=== PATIENT | male | born 1955 | race Caucasian/White ===

== ENCOUNTER → 2017-02-27 | Outpatient (CLI) | payer BC ==
[~2017-02-27] MED LIST: ACET1TAB84 PO; ASPEC81 PO; ASPI325T45 PO; ATOR-24 PO; CYCL10TA6 PO; DICL-201 PO; ERGO500011 PO; GABA-112 PO; GLC500 PO; GLIM2TAB PO; LISI-791 PO; METO-452 PO; OXYC-57 PO; TPRSR100 PO; TRAM37.52 PO
--- NOTE | 2017-02-27 16:19 | DIAGNOSTIC IMAGING REPORT ---
Venous Doppler left leg LEFT VENOUS DOPP LOWER EXT UNILAT CLINICAL HISTORY: M79.89 Swelling of left lower [id number] TECHNIQUE: Venous Doppler COMPARISON STUDY: None FINDINGS: Normal study of the deep venous structures. No evidence of deep venous thrombosis. Moderately complex well-circumscribed circumscribed collection posterior to the proximal calf measuring 9 x 4 x 2 cm. This may represent hematoma. IMPRESSION: 1. Study is negative for deep venous thrombosis. 2. Soft tissue hematoma posterior aspect proximal calf. Electronically signed by: Lucho Kennedy M.D. 02/27/2017 4:18 PM Dictated Date/Time: 02/27/2017 4:16 PM
== END | disposition home or self-care (01) ==
LOC: C.ULTR 15:23
PROVIDERS: ATTEND Neuromusculoskeletal Medicine & OMM
DX: M79.89 Other specified soft tissue disorders (principal)

== ENCOUNTER → 2017-03-01 | Outpatient (CLI) | payer BC ==
[2017-03-01 17:36] LABS: BASO % 0.3 %; BASO ABS # 0.03 K/uL (0-0.2); COMPLETE YES; EOS % 0.7 %; HEMATOCRIT 44.2 % (42-52); IG% 0.3 %; LYMPH % 14.3 %; MEAN CORPUSCULAR HEMOGLOBIN 30.4 pg (25-34); MEAN CORPUSCULAR HGB CONC 32.4 g/dl (32-36); MEAN PLATELET VOLUME 10.9 fL (7.4-10.4); MONO % 9.5 %; NEUT % 74.9 %; PLATELET COUNT 236 K/uL (130-400); WHITE BLOOD COUNT 9.07 K/uL (4.8-10.8)
[2017-03-01 18:16] LABS: BLOOD UREA NITROGEN 14 mg/dl (7-18); CARBON DIOXIDE 23 mmol/L (21-32); CHLORIDE 108 mmol/L (98-107); GLUCOSE 228 mg/dl (70-99); POTASSIUM 4.4 mmol/L (3.5-5.1); SODIUM 142 mmol/L (136-145)
[2017-03-01 18:26] LABS: THYROID STIMULATING HORMONE 0.696 uIu/ml (0.300-4.500)
[2017-03-01 18:35] LABS: CALCIUM 9.1 mg/dl (8.5-10.1)
[2017-03-01 18:38] LABS: LYME DISEASE AB IGG NEG (NEG)
[2017-03-01 18:41] LABS: LYME DISEASE AB IGM NEG (NEG)
== END ==
LOC: C.LABPVFM 14:32
PROVIDERS: ATTEND Nurse Practitioner
DX: M79.1 Myalgia (principal); R53.83 Other fatigue; R51 Headache; M25.50 Pain in unspecified joint

== ENCOUNTER → 2017-03-22 | Outpatient (CLI) | payer BC ==
[~2017-03-22] MED LIST changes: +ERGO1CAP41 PO; -ERGO500011 PO; -METO-452 PO; +METO1TAB66 PO
--- NOTE | 2017-03-22 15:05 | DIAGNOSTIC IMAGING REPORT ---
LEFT KNEE 4 OR MORE CLINICAL HISTORY: LEFT KNEE PAIN pain COMPARISON: None. Discussion: Minimal degenerative change on major joint compartments. No significant joint effusion. Small osteophyte projecting from the superior patella. IMPRESSION: Minimal degenerative change. No acute process. Electronically signed by: Lucho Kennedy M.D. 03/22/2017 3:03 PM Dictated Date/Time: 03/22/2017 3:03 PM
== END | disposition home or self-care (01) ==
LOC: C.RDSM 14:21
PROVIDERS: ATTEND Physician Assistant
DX: M25.562 Pain in left knee (principal)

== ENCOUNTER → 2017-04-19 | Outpatient (CLI) | payer BC ==
--- NOTE | 2017-04-19 13:45 | DIAGNOSTIC IMAGING REPORT ---
LEFT SHOULDER MIN 2 VIEWS CLINICAL HISTORY: 61 years-old Male presenting with LEFT SHOULDER PAIN. TECHNIQUE: External rotation, transscapular Y, and axillary views of the left shoulder were obtained. COMPARISON: None. FINDINGS: No subluxation of the humeral head on the glenoid. Acromioclavicular joint congruent. No significant degenerative change. No acute fracture. No significant deformity of the humeral head or glenoid. Visualized portion of the left hemithorax normal. IMPRESSION: No acute osseous injury of the left shoulder. Electronically signed by: Chano Price M.D. 04/19/2017 1:44 PM Dictated Date/Time: 04/19/2017 1:42 PM
== END | disposition home or self-care (01) ==
LOC: C.RDSM 12:20
PROVIDERS: ATTEND Physician Assistant
DX: M25.512 Pain in left shoulder (principal)

== ENCOUNTER → 2017-05-26 | Outpatient (CLI) | payer BC ==
--- NOTE | 2017-05-26 18:13 | DIAGNOSTIC IMAGING REPORT ---
LEFT LOWER EXT JOINT WITHOUT CLINICAL HISTORY: 61 years-old Male with LEFT KNEE EFFUSION. Patient complains of left knee pain for approximately 5 months, most pronounced in the medial compartment. No reported trauma. COMPARISON: Left knee radiographs 03/22/2017 TECHNIQUE: Multiplanar, multisequence MRI of the left knee was performed without intravenous contrast. FINDINGS: MENISCI: There is a large complex tear of the medial meniscal body, anterior junction, posterior junction and posterior horn medial meniscus with dominant portion of the tear demonstrating a horizontal undersurface component as seen on image 5 of the sagittal PD series. Amorphous increased signal involving the posterior horn medial meniscal root suspicious for possible root tear. There is moderate degree of medial meniscal extrusion into the adjacent para meniscal gutter as seen on coronal PD image #19. There may also be a displaced fragment noted extending superiorly with moderate to extensive or parameniscal edema. There is a linear increased signal of the anterior horn lateral meniscus extending to the superior articular surface suggesting an horizontal tear as seen on image 17 of the sagittal PD series. CRUCIATE LIGAMENTS: The anterior and posterior cruciate ligaments are normal in signal, morphology and course. COLLATERAL LIGAMENTS: The popliteus tendon, biceps femoris tendon, fibular collateral ligament and iliotibial band are intact. There is thickening with intermediate signal noted involving the proximal MCL suggesting grade 2 sprain. Moderate edema is noted both superficial and deep to the MCL. EXTENSOR MECHANISM: The quadriceps and patellar tendons are intact. The medial and lateral patellar retinacula are intact. The trochlear groove is mildly shallow. Tibial tuberosity to trochlear groove interval is within normal limits. There is moderate thinning of the medial patellofemoral ligament suggesting chronic injury. KNEE JOINT: There is a large knee joint effusion with associated moderate synovitis. Mild lateral and patellofemoral osteoarthritis is noted with mild to moderate medial compartment disease. BONE MARROW: Moderate bone marrow edema involves the medial aspect of the medial femoral condyle and medial tibial plateau with slight cortical impaction measuring 10 x 13 mm within the medial aspect of the mid tibial plateau and 6 x 14 mm within the medial aspect of the mid weightbearing medial femoral condyle. No intra-articular loose body. SOFT TISSUES: Moderately complex leaking German's cyst is seen, 3.6 x 2.3 x 6.4 cm. IMPRESSION: 1. Moderate bone marrow edema within the medial aspect of the medial femoral condyle and medial tibial plateau with slight cortical impaction as above with moderate surrounding soft tissue edema suggests cortical impaction fractures with associated bone marrow contusion, acute to subacute in nature. 2. Large complex tear of the medial meniscal body, anterior junction, posterior junction and posterior horn medial meniscus with associated moderate meniscal extrusion into the parameniscal gutter. There may be a displaced fragment within the superior aspect of the parameniscal gutter. 3. Small horizontal superior articular surface tear of the anterior horn lateral meniscus. 4. Grade 2 sprain of the MCL. 5. Moderate joint effusion with synovitis. 6. Moderately complex leaking German's cyst. The above report was generated using voice recognition software. It may contain grammatical, syntax or spelling errors. Electronically signed by: Javed King M.D. 05/26/2017 6:11 PM Dictated Date/Time: 05/26/2017 4:29 PM
== END | disposition home or self-care (01) ==
LOC: C.MRIBC 15:17
PROVIDERS: ATTEND Physician Assistant
DX: M17.12 Unilateral primary osteoarthritis, left knee (principal); M25.462 Effusion, left knee; S83.242A Other tear of medial meniscus, current injury, left knee, initial encounter; S83.412A Sprain of medial collateral ligament of left knee, initial encounter; M71.22 Synovial cyst of popliteal space [Baker], left knee; X58.XXXA Exposure to other specified factors, initial encounter

== ENCOUNTER → 2017-06-05 | Outpatient (CLI) | payer BC | END | disposition home or self-care (01) | LOC: C.RDSM 16:07 | PROVIDERS: ATTEND Physical Medicine & Rehabilitation Sports Medicine | DX: M17.12 Unilateral primary osteoarthritis, left knee (principal) ==

== ENCOUNTER → 2017-06-15 | Outpatient (CLI) | payer BC ==
[~2017-06-15] MED LIST changes: +ATROPINE SULFATE 0.1 MG/ML 5ML SYR ONE; -CYCL10TA6 PO; +DOBUTamine 500MG / 250ML D5W ONE; -METO1TAB66 PO; +METOPROLOL TARTRATE 1 MG/ML VIAL ONE; +PERFLUTREN LIPID MICROSPHERE (DEFINITY) IV ONE
[2017-06-15 12:13] LABS: BASO % 0.6 %; BASO ABS # 0.04 K/uL (0-0.2); COMPLETE YES; EOS % 0.9 %; HEMATOCRIT 38.7 % (42-52); IG% 0.3 %; LYMPH % 18.2 %; LYMPH ABS # 1.16 K/uL (1.2-3.4); MEAN CELL VOLUME 93.9 fL (80-100); MEAN CORPUSCULAR HEMOGLOBIN 30.6 pg (25-34); MEAN CORPUSCULAR HGB CONC 32.6 g/dl (32-36); MEAN PLATELET VOLUME 10.4 fL (7.4-10.4); MONO % 8.5 %; NEUT % 71.5 %; PLATELET COUNT 257 K/uL (130-400); RED BLOOD COUNT 4.12 M/uL (4.7-6.1); WHITE BLOOD COUNT 6.38 K/uL (4.8-10.8)
[2017-06-15 12:24] LABS: ESTIMATED AVERAGE GLUCOSE 166 mg/dl; HA1C FLAG Normal (Normal)
[2017-06-15 12:30] LABS: ALT/SGPT 43 U/L (12-78); AST/SGOT 18 U/L (15-37); BLOOD UREA NITROGEN 19 mg/dl (7-18); BUN/CREATININE RATIO 18.7 (10-20); CALCIUM 9.3 mg/dl (8.5-10.1); CARBON DIOXIDE 28 mmol/L (21-32); CHLORIDE 108 mmol/L (98-107); GLUCOSE 142 mg/dl (70-99); SODIUM 140 mmol/L (136-145)
[2017-06-15 12:32] LABS: ALB/GLOB RATIO 1.2 (0.9-2); ALKALINE PHOSPHATASE 100 U/L (45-117)
--- NOTE | 2017-06-15 19:10 | DOBUTAMINE ECHO ---
*NOTICE TO RECEIVING [employer] This information is strictly Confidential and protected under [place] law. [place] law prohibits you from making any further disclosure of this information unless further disclosure is expressly permitted by the written consent of the person to whom it pertains or is authorized by law. A general authorization for the release of medical or other information is not sufficient for this purpose. Hospital accepts no responsibility if the information is made available to any other person, INCLUDING THE PATIENT. Interpretation Summary * Name: DALI COELHO Study Date: 06/15/2017 10:08 AM * Patient Location: [facility] * : 1955 (M/d/yyyy) Gender: Male Height: 70 in * Age: 61 yrs Ethnicity: [place] * Ordering Physician: Lucho Smith * Referring Physician: Lucho Smith PA-C * Performed By: Pelon Awad R[facility] * * Reason For Study: Pre-surgical evaluation * The study was technically adequate. * -- Conclusions -- * STRESS STUDY: * Normal pharmacologic stress echocardiogram. * No echocardiographic or EKG evidence of myocardial ischemia having achieved a peak heart rate equivalent to 77 % of the age predicted maxiumum. * The heart rate response was attenuated due to chronic beta chula therapy. * No symptoms suggestive of angina were reported. * Complex supraventricular ectopy was noted at peak pharmacologic stress as well as sinus rhythm with atrial bigeminy that resolved in the post pharmacologic stress recovery interval after dobutamine was discontinued and IV metoprolol was administered. * RESTING STUDY: * The LV Ejection Fraction = 60-65%. * The aortic valve is trileaflet. * There is mild focal calcification of the aortic valve. * No aortic regurgitation is present. * No hemodynamically significant valvular aortic stenosis. * There is mild mitral regurgitation. Procedure Details * A contrast injection of Definity was performed to improve assessment of LV function. * Contrast was injected into an intravenous site in the left arm. * One vial of Definity ultrasound contrast was diluted in normal saline to a total volume of 10 ml. A total of '12' ml of solution was administered during imaging. * Lot # [id number] of Definity utilized for procedure. * Expiration date 06/25/2018. * The attending nurse who injected the contrast agent was Jennifer Paez RN. * ECHOEX, CPT #[id number] * ECHO DOPPLER, CPT #[id number] * ECHO COLOR FLOW, CPT #[id number] Left Ventricle * The left ventricle is normal in size. * There is normal left ventricular wall thickness. * Left ventricular systolic function is normal. * Ejection Fraction = 60-65%. * Resting wall motion: Normal. Stress wall motion: Appropriate increase in Left ventricular systolic function and decrease in cavity size. No stress induced segmental wall motion abnormalities. Right Ventricle * The right ventricle is normal in size and function. Atria * The left atrium is mildly dilated. * Right atrial size is normal. * No ASD detected; PFO is not assessed. Mitral Valve * The mitral valve is normal. * There is no mitral valve stenosis. * There is mild mitral regurgitation. Tricuspid Valve * The tricuspid valve is normal. * There is no tricuspid stenosis. * Significant tricuspid regurgitation is absent. * Doppler findings do not suggest pulmonary hypertension. Aortic Valve * The aortic valve is trileaflet. * There is mild focal calcification of the aortic valve. * No hemodynamically significant valvular aortic stenosis. * No aortic regurgitation is present. Pulmonic Valve * The pulmonic valve is not well visualized. Great Vessels * The aortic root is normal size. Pericardium * There is no pericardial effusion. Stress Parameters * The baseline EKG revealed SR at 67 bpm, an age undetermined septal infarction counld not be excluded. The ST segments are normal on the baseline EKG. * The stress EKG was negative for ischemia. Complex frequent supraventricular ectopy was present at peak pharmacologic stress. * The stress portion of this study was personally supervised by the undersigned interpreting physician. * Rest heart rate was '69' BPM. * Rest blood pressure was '140/64' * Maximum heart rate achieved was 123 bpm. * Maximum heart rate was 77 % of maximum age-predicted heart rate. * Maximum blood pressure was '203/71' * Maximum Dobutamine infusion rate was '30' mcg/kg/min. * A total of 0.5 mg of intravenous Atropine was used to supplement Dobutamine for heart rate response. * Dobutamine infusion was terminated due to achieving target heart rate * A total of 10 mg of IV Metoprolol was administered to reverse Dobutamine-induced tachycardia. Left Ventricular Diastolic Function * Grade I diastolic dysfunction, (abnormal relaxation pattern). MMode 2D Measurements and Calculations IVSd 1.0 cm LVIDd 5.5 cm LVIDs 3.1 cm LVPWd 1.1 cm IVS/LVPW 0.95 FS 42.5 % EDV(Teich) 145.8 ml ESV(Teich) 39.3 ml EF(Teich) 73.0 % EDV(cubed) 164.0 ml ESV(cubed) 31.2 ml EF(cubed) 81.0 % LV mass(C)d 220.8 grams SV(Teich) 106.5 ml SV(cubed) 132.8 ml Ao root diam 3.5 cm Ao root area 9.7 cm\S\2 LVOT diam 2.1 cm LVOT area 3.5 cm\S\2 LVAd ap4 39.6 cm\S\2 LVLd ap4 8.7 cm EDV(MOD-sp4) 154.0 ml LVAs ap4 21.6 cm\S\2 LVLs ap4 7.1 cm ESV(MOD-sp4) 59.3 ml EF(MOD-sp4) 61.5 % LVAd ap2 31.7 cm\S\2 LVLd ap2 8.0 cm EDV(MOD-sp2) 107.0 ml LVAs ap2 18.5 cm\S\2 LVLs ap2 6.3 cm ESV(MOD-sp2) 49.4 ml EF(MOD-sp2) 53.8 % SV(MOD-sp4) 94.7 ml SV(MOD-sp2) 57.6 ml Doppler Measurements and Calculations MV E max malinda 68.4 cm/sec MV A max malinda 59.7 cm/sec MV E/A 1.1 MV dec time 0.22 sec Ao V2 max 163.7 cm/sec Ao max PG 10.7 mmHg Ao max PG (full) 7.3 mmHg HAMIDA(V,A) 2.0 cm\S\2 HAMIDA(V,D) 2.0 cm\S\2 LV V1 max PG 3.4 mmHg LV V1 max 92.6 cm/sec
== END | disposition home or self-care (01) ==
LOC: C.CPL 09:36
PROVIDERS: ATTEND Physician Assistant
DX: Z01.810 Encounter for preprocedural cardiovascular examination (principal); E55.9 Vitamin D deficiency, unspecified; E11.9 Type 2 diabetes mellitus without complications

== ENCOUNTER → 2017-06-22 | Day surgery (SDC) | payer BC ==
[2017-06-13 16:18] VITALS: Ht 177.8 cm; Wt 80.9 kg
[~2017-06-22] VITALS: Ht 177.8 cm; Wt 80.9 kg
[~2017-06-22] MED LIST changes: +ATROPINE SULFATE 0.1 MG/ML 5ML SYR IV PRN; -ATROPINE SULFATE 0.1 MG/ML 5ML SYR ONE; +CEFAZOLIN 2000 MG/60 ML D5W IV SCH; +DEXAMETHASONE SOD INJ 4 MG/ML VIAL ONE; -DOBUTamine 500MG / 250ML D5W ONE; +EpHEDrine SULFATE 50MG/5ML SYR ONE; +EpHEDrine SULFATE INJ 50 MG/ML AMP IV PRN; +FENTANYL CITRATE INJ 50 MCG/1 ML 2 ML VIAL IV PRN; +FENTANYL CITRATE INJ 50 MCG/1 ML 2 ML VIAL ONE; +HYDROmorphone INJ 1 MG/ML SYR IV PRN; +LACTATED RINGER'S 1000ML 1,000 ML IV SCH; +LIDOCAINE HCL 2% 2 ML VIAL (20MG/ML) ONE; +LIDOCAINE/EPINEPHRINE 1% INJ 50 ML VIAL ONE; -METOPROLOL TARTRATE 1 MG/ML VIAL ONE; +MIDAZOLAM HCL 1 MG/ML 2ML VIAL ONE; +MoRPHine SULFATE 2 MG/ML CARP IV PRN; +MoRPHine SULFATE 4 MG/ML 1 ML CARP\\VIAL IV PRN; +ONDANSETRON INJ 2 MG/ML 2 ML VIAL IV PRN; +ONDANSETRON INJ 2 MG/ML 2 ML VIAL ONE; +OXYCODONE/ACETAMINOPHEN 5-325 TAB PO PRN; -PERFLUTREN LIPID MICROSPHERE (DEFINITY) IV ONE; +PROPOFOL IV EMULSION 10 MG/ML 20 ML VIAL IV ONE; +SODIUM CHLORIDE 0.9% 1000ML 1,000 ML IV SCH
--- NOTE | 2017-06-22 06:44 | History & Physical Bridge Note ---
H&P Re-Evaluation Bridge Note: I have examined the patient, reviewed the History & Physical and in the interval since the performance of the History & Physical I have noted the following changes of clinical significance: No changes noted
--- NOTE | 2017-06-22 08:26 | Discharge Instructions-SurgCtr ---
Discharge Instructions Date of Service Jun 22, 2017. Visit Reason for Visit: Left Knee Medial Meniscus Tear, Chondrosis Discharge Discharge Diagnosis / Problem: left knee medial meniscal tear, chondrosis medial compartment Discharge Goals Goal(s): Decrease discomfort, Improve function, Increase independence Medications Stopped Medications Name(s): Metformin last dose Monday Restart Stopped Medication(s): Resume metformin 06/23/2017 Activity Recommendations Activity Limitations: per Instructions/Follow-up section Weightbearing Status: Left weightbearing (as tolerated with crutches) Anesthesia . Post Anesthesia Instructions: If you have had General Anesthesia or IV Sedation: * Do not drive today. * Resume driving when surgeon permits. * Do not make important decisions or sign legal documents today. * Call surgeon for: 1. Temperature elevations greater than 101 degrees F. 2. Uncontrollable pain. 3. Excessive bleeding. 4. Persistent nausea and vomiting. 5. Medication intolerance (nausea, vomiting or rash). * For nausea and vomiting use only clear liquids such as: tea, soda, bouillon until nausea subsides, then gradually increase diet as tolerated. * If you have any concerns or questions, call your surgeon's office. If physician is unavailable and it is an emergency, call 911 or go to the nearest emergency room. . Instructions / Follow-Up Instructions / Follow-Up The following are instructions to follow after your Arthroscopic Knee Surgery. ACTIVITY RECOMMENDATIONS: * Minimize activity until your first visit after surgery. * No excessive walking, jogging, sports or laboring. * Return to activity is individualized. Most patients are able to return to every day activities within one month. * Return to sports or intensive labor usually occurs at 2-3 months. * Driving is not permitted until at least your first postoperative visit at a minimum. Please ask your doctor when it is safe to resume driving. If you have an automatic vehicle and your left leg has been operated on, then you may begin driving as soon as you are comfortable and can drive safely. SCHOOL/WORK RECOMMENDATIONS: * You may return to sedentary work or school when you are feeling more comfortable. This is usually 3-7 days after surgery. * Expect increased discomfort with increased activity. Continue to elevate and ice the leg as much as possible. MEDICATIONS: * You will have a prescription for pain medication and an anti-inflammatory medication after surgery. * Use the pain medication for severe pain and the anti-inflammatory for less severe pain. Once the pain medication has run out, try to use the anti-inflammatory medication. If this is not effective, contact the office for assistance. * The pain medication may cause nausea, constipation and drowsiness. You should see how they affect you before driving or similar activity. * The anti-inflammatory medication may cause stomach upset and bleeding. If this occurs let your doctor know immediately . * Take a stool softener like Colace or a laxative like Senokot to prevent constipation. DIET: * Resume previous diet. SPECIAL CARE: ICE: You have the option of an ice cooler, gel packs or ice bags. * If you have an ice cooler, refer to the instructions for that device. The ice cooler may be used continuously. * If you do not have an ice cooler, you will need to use ice bags or gel packs. Do not apply ice directly to the skin. Use a thin dressing or leonela shirt between the skin and ice bag. Apply ice for 20-30 minutes and repeat every 2-4 hours. This is especially important for the first 7-10 days after surgery. Once the pain improves, use ice as needed. ELEVATION: * Keep your leg elevated at or above the level of your heart as much as possible. * Expect some increased discomfort and swelling if you are standing for any length of time. * When lying down, avoid placing anything under your knee. Rather, prop your leg up by placing several pillows under your heel or calf. DRESSING: * Your dressing will be changed at your first therapy appointment approximately 4-5 days after surgery. Band-aids, tape strips or gauze may be applied. You may then change your dressing daily. * Reapply dressing followed by the Otoniel wrap or Tubi-drill hand stockinet and EBIce cooling pad (if chosen). * Always wash your hands prior to touching the incision area. * Once the stitches are removed, you may leave the wound open to air or cover with an Otoniel wrap or Tubi-drill hand stockinet. * If you have been given a white elastic stocking (FLAKO hose), wear as much as possible for the first 1-3 weeks depending on swelling. * Expect some bloody drainage for the first few days after surgery. * Leave the tape strips, if present, in place for 5-7 days. * Band-aids and gauze may be changed daily. CRUTCHES: * You will need to use crutches after surgery. * You may gradually progress to full weight bearing as tolerated and wean off the crutches unless otherwise advised. * Your therapist can provide assistance weaning off crutches. * Patients who have a microfracture done may need to be toe-touch weight- bearing for 4-6 weeks. BATHING: * You may shower or sponge-bathe immediately after surgery. * The dressing will need to be covered with a plastic bag or plastic wrap until the dressing is changed on the fourth or fifth day after surgery. * Once the dressing has been changed on the fourth or fifth day after surgery, you may shower and get the incision wet. * Wash with regular soap and water. * Do not bathe (submerge the incision), soak, swim or use a hot tub until the incision is completely healed over with normal skin and the doctor has given the OK to proceed. * There is no need to apply any ointments, powders or salves to your incision. * Do not apply alcohol or hydrogen peroxide directly to the incision. * Diluted peroxide (50:50 mixture with sterile saline) may be used to clean dried blood from around the incision area. BRACE: * Bracing is generally not needed after routine Arthroscopic Knee surgery. THERAPY: * You will begin therapy four or five days after surgery. * Organized therapy with the therapist is important for the first 4-6 weeks after surgery. During that time you will attend therapy 1-3 times per week. * You will also need to do daily exercises for range of motion and strength as instructed. PROBLEMS/QUESTIONS: * If you have any problems such as severe pain, numbness, tingling or high fevers or if you have any questions, please contact the office at [phone]. * It is not uncommon to have some numbness and tingling after the surgery especially if you have had a nerve block done. This should gradually improve over the first 1- 2 days. If this persists longer or worsens please contact the office. FOLLOW UP VISIT: * If not already scheduled, please call the office at to schedule a follow-up appointment for 10 days, 6 weeks and 3 months after surgery. * You will start physical therapy on 06/27/2017 at 10 AM. * You have a follow-up with Dr. Neely on 07/05/2017 at 12:00 PM. Is currently [phone] with any problems, questions, or concerns. Diet Recommendations Home Diet: no limitations, resume previous diet Procedures Procedures Performed: Left Knee Arthroscopic Partial Medial Meniscectomy, Chondroplasty Pending Studies Studies pending at discharge: no Medical Emergencies . Who to Call and When: Medical Emergencies: If at any time you feel your situation is an emergency, please call 911 immediately. . Non-Emergent Contact Non-Emergency issues call your: Surgeon Call Non-Emergent contact if: temperature is above 101, your pain is not controlled, your pain is concerning you, wound has increased drainage, wound has increased redness, wound has increased pain, you have any medication questions . . "Provider Documentation" section prepared by Raquel Mcknight. . [place] Drug Monitoring Program Search Results: patient reviewed within database, no issues identified
--- NOTE | 2017-06-22 08:30 | [facility] Operative Report ---
Operative Report Operative Date Jun 22, 2017. Pre-Operative Diagnosis Left Knee Medial Meniscus Tear, Chondrosis Post-Operative Diagnosis same as preop Procedure(s) Performed Left Knee Arthroscopic Partial Medial Meniscectomy, Chondroplasty Surgeon Dr. Neely Lift Truck Mechanic Surgeon(s) Raquel Mcknight PA-C Estimated Blood Loss 5ML Findings Chondrosis medial femoral condyle, medial meniscal tear. Specimens none, per surgeon. Drains none Anesthesia Gen. Complication(s) None Disposition Recovery Room / PACU (stable) Indications Patient is a 61-year-old male with complaints of left knee pain. He failed conservative treatment which has included anti-inflammatories, corticosteroid injections, bracing. His knee progressively worsened. X-rays were taken and found no bony abnormality. MRI was obtained and found to have a degenerative meniscal tear of the medial side. As well as some chondromalacia. Surgical intervention recommended. Risks complications discussed. Informed consent was obtained. Description of Procedure Patient was taken to the operating room, placed under general anesthesia. She was given 2 g of IV Ancef for surgical prophylaxis. Timeout was performed. She was prepped and draped in routine sterile fashion. I was present during the entire case, please see Dr. Neely's operative report for further detail. Patient was awakened and transferred to the recovery room in stable condition. I attest to the content of the Intraoperative Record and any orders documented therein. Any exceptions are noted below.
--- NOTE | 2017-06-22 08:38 | [facility] Operative Report ---
Operative Report Operative Date Jun 22, 2017. Pre-Operative Diagnosis Left Knee Medial Meniscus Tear, Chondrosis Post-Operative Diagnosis same as preop Procedure(s) Performed Left Knee Arthroscopic Partial Medial Meniscectomy, Chondroplasty Surgeon Dr. Neely Facs Teacher Surgeon(s) DEJUAN Costello, hector perrin Estimated Blood Loss 5ML Findings Medial compartment chondrosis medial meniscus tear, trochlear and patellar chondrosis Specimens none, per surgeon. Drains none Anesthesia laryngeal mask Complication(s) None Disposition Recovery Room / PACU Implants None Indications The patient's a 61-year-old male with left knee pain refractory to nonsurgical methods of management. He has both medial compartment chondrosis without significant joint space narrowing on plain film. He has chondrosis on his MRI varus alignment and a degenerative meniscus tear. He has been apprised of his treatment options and has elected to proceed with surgical management with a full understanding of the treatment options risks and benefits alternatives and possible outcomes Description of Procedure Informed consent was obtained. The patient was identified as [place]. He identified the operative site. I marked with my initials. The operative site was identified as the left knee. A preoperative surgical timeout was performed. A preoperative dose of IV antibiotics was given. He was taken to the operating room positioned supine on the operating room table. No tourniquet was utilized. A lateral post was used for stressing the knee. A laryngeal mask anesthetic was given. The examination under anesthesia revealed range of motion 0/0/140. Positive varus alignment with trace MCL laxity and a moderate left knee effusion cruciate and collateral ligament laxity otherwise was intact. The left leg was prepped and draped in the usual sterile fashion. DVT prophylaxis will be done intraoperatively with foot pumps. Postoperatively with early mobility and aspirin. Patient had preoperative medical and cardiology clearance. Inferolateral viewing portal superior lateral outflow portal and inferomedial working portals were established. Chondral debris was noted throughout the knee. There were some grade 1 and 2 chondrosis of the median ridge of the patella which was lightly debrided. There was grade 2 and perhaps some areas of grade 3 chondrosis involving the trochlea and the medial femoral condyle portion of the patellofemoral articulation. Chondroplasty was performed. There were no full-thickness defects. The lateral compartment was normal with the exception of grade 1 changes of the lateral tibial plateau. The posterior lateral compartment and cruciate ligaments were normal. The lateral compartment articular cartilage popliteus popliteal hiatus and lateral meniscus were normal. The medial and lateral gutters were unremarkable except for chondral debris synovitis in the anterior knee and suprapatellar pouch was debrided as encountered. There was osteophytes the inferior pole of the patella and marginally around the femoral condyles particularly the medial intercondylar area superior and medial femoral condyle area. The medial compartment showed grade 1 and 2 changes of the tibial plateau. There was a large complex tear of the posterior horn and body of the medial meniscus with unstable fragments. This went back to the meniscal capsular junction in the midportion of the body near the MCL attachment. This was debrided with basket forceps and motorized shaver back to a stable balanced and contoured rim. The upper and undersurface of the meniscus were palpated for any hidden fragments. The posterior medial and lateral compartments were inspected. The medial femoral condyle showed a large area 1.51.5 cm of grade 4 chondrosis. He was in the 45 weightbearing area. There was normal cartilage a posterior to this. Anterior to it was a similar area of grade 2 and 3 chondrosis about the same size. Anterior to this was a lesser degrees of chondrosis. Chondroplasty was performed I did not believe that a microfracture was indicated. The shaver was run through the knee to pickup loose debris. The arthroscopic portals were closed with 4-0 nylon. A soft sterile dressing was applied. The patient was awakened from anesthesia without difficulty. He was taken recovery room in stable condition. There were no specimens. Counts are correct in the case. Blood loss was minimal. At the conclusion operations both patient's sister. I informed her my findings and gave detailed postoperative instructions. He will be rehabilitated according to the knee arthroscopy meniscectomy chondroplasty pathway/protocol. He can begin his aspirin tonight and will will wear FLAKO hose. I attest to the content of the Intraoperative Record and any orders documented therein. Any exceptions are noted below.
[2017-06-22 09:51] VITALS: BP 135/79; PULSE 62; TEMP 36.5; O2SAT 96
--- NOTE | 2017-06-22 10:23 | Anesthesia Progress Nt - [facility] ---
Anesthesia Post Op Note Date & Time Jun 22, 2017 at 10:22 Vital Signs Pain Intensity: 1 Vital Signs Past 12 Hours Date Time Temp Pulse Resp B/P (MAP) Pulse Ox O2 Delivery O2 Flow Rate FiO2 06/22/17 09:51 36.5 62 16 135/79 (97) 96 Room Air 06/22/17 08:55 36.5 73 16 145/84 (104) 97 Room Air 06/22/17 08:48 77 14 06/22/17 08:48 76 14 97 06/22/17 08:47 36.3 77 14 142/85 97 Room Air 06/22/17 08:46 142/85 06/22/17 08:43 78 17 06/22/17 08:43 77 17 96 06/22/17 08:41 139/84 06/22/17 08:38 85 18 06/22/17 08:38 83 18 06/22/17 08:36 140/95 06/22/17 08:33 79 18 99 06/22/17 08:33 80 18 06/22/17 08:31 125/97 06/22/17 08:28 12 06/22/17 08:28 81 12 06/22/17 08:26 136/92 06/22/17 08:23 74 13 99 06/22/17 08:23 74 13 06/22/17 08:21 132/94 06/22/17 08:20 154/93 06/22/17 08:18 92 9 96 06/22/17 08:18 36.5 84 12 143/84 99 Mask 6 06/22/17 08:18 91 9 06/22/17 06:31 36.7 63 16 167/74 (105) 96 Room Air Notes Mental Status: alert / awake / arousable, participated in evaluation Pt Amnestic to Procedure: Yes Nausea / Vomiting: adequately controlled Pain: adequately controlled Airway Patency, RR, SpO2: stable & adequate BP & HR: stable & adequate Hydration State: stable & adequate Anesthetic Complications: no major complications apparent
== END | disposition home or self-care (01) ==
LOC: X.SURG 06:27
PROVIDERS: ATTEND Physical Medicine & Rehabilitation Sports Medicine
DX: S83.242A Other tear of medial meniscus, current injury, left knee, initial encounter (principal); X58.XXXA Exposure to other specified factors, initial encounter; M22.2X2 Patellofemoral disorders, left knee; I10 Essential (primary) hypertension; E78.00 Pure hypercholesterolemia, unspecified; E11.9 Type 2 diabetes mellitus without complications; M19.90 Unspecified osteoarthritis, unspecified site; Z95.5 Presence of coronary angioplasty implant and graft; Z79.82 Long term (current) use of aspirin; Z79.84 Long term (current) use of oral hypoglycemic drugs; Z79.899 Other long term (current) drug therapy